=== PATIENT | female | born 1960 | race African-American/Black ===

== ENCOUNTER 2025-07-19 09:01 | Outpatient (REF) | payer MEDICARE, MEDICAID, SELFPAY ==
--- OUTSIDE RECORDS SUMMARY | 2025-07-19 09:43 | XMS_ITS | Clinical Summary ---
Author Organization [facility] Address [address] [place] [address] Care Team Providers Care Hose Inspector And Patcher Name Role Phone Shane Red MD Primary Care Provider [phone] Social History Tobacco Use Types Packs/Day Years Used Date Smoking Tobacco: Never Assessed Comments Unknown Sex and Gender Information Value Date Recorded Sex Assigned at Not on file Legal Sex Female 7:12 PM EST Gender Identity Not on file Sexual Orientation Not on file Plan of Treatment Health Maintenance Due Date Last Done Comments Breast Cancer Screening 1960 Colorectal Cancer Screening: Colonoscopy 1960 Pneumococcal Vaccine: 50+ Years (2 of 2 - PCV) 03/04/2018 03/04/2017 Zoster Vaccines (2 of 2) 12/05/2021 10/10/2021 DTaP,Tdap,and Td Vaccines (2 - Td or Tdap) 12/12/2021 12/13/2011 Cholesterol Screening (Lipid Panel) 07/27/2022 Hepatitis C Screening 07/27/2022 Osteoporosis Screening (Bone Density Screening) 07/27/2022 Social Influencers of Health Screening 07/27/2022 Depression Screening 08/25/2024 Hypertension/CHF/CAD Annual BMP Blood Test 12/24/2024 COVID-19 Vaccine ( season) 2025 05/19/2024, 06/28/2023, 07/04/2021, Additional history exists Influenza Vaccine (#1) 2025 , 06/28/2023, 05/18/2022, Additional history exists Falls Risk Assessment 2025 RSV Immunization Adult Patients Completed 05/19/2024 HIB Vaccines Aged Out No longer eligi ble based on patient's age to complete this topic HPV Vaccines Aged Out No longer eligi ble based on patient's age to complete this topic Hepatitis A Vaccines Aged Out No long er eligible based on patient's age to complete this topic Hepatitis B Vaccines Aged Out No long er eligible based on patient's age to complete this topic IPV Vaccines Aged Out No longer eligi ble based on patient's age to complete this topic MMR Vaccines Aged Out No longer eligi ble based on patient's age to complete this topic Meningococcal ACWY Vaccine Aged Out N o longer eligible based on patient's age to complete this topic Meningococcal B Vaccine Aged Out No l onger eligible based on patient's age to complete this topic RSV Immunization Patients Under 20 months Aged Out No longer eligible based on patient's age to complete this topic Varicella Vaccines Aged Out No longer eligible based on patient's age to complete this topic Advance Directives Documents on File Type Date Recorded Patient Distance Education Faculty Liaison Expl anation Health Care Decision (hx) 11/13/2020 AD MICHELLE DIRECTIVE Health Care Decision (hx) 11/13/2020 AD MICHELLE DIRECTIVE Health Care Decision (hx) 11/09/2020 AD MICHELLE DIRECTIVE Health Care Decision (hx) 11/09/2020 AD MICHELLE DIRECTIVE Care Teams Hose Inspector And Patcher Relationship Specialty Start Date End Date Shane Red MD [address] [place] [address] PCP - General Internal Medicine 02/24/18
== END 2025-07-19 09:02 | disposition home or self-care (01) ==
LOC: CF 09:01
DX: K43.2 Incisional hernia without obstruction or gangrene (principal)
CPT/HCPCS: 99202

== ENCOUNTER 2025-07-19 09:03 | Outpatient (AMB) | payer MEDICARE, MEDICAID, SELFPAY ==
--- NOTE | 2025-07-19 09:05 | MHC.OFFVIS ---
Vital Signs 07/19/25 09:24 Height 5 ft 4 in Weight 288 lb BMI 49.4 BP 126/64 Blood Pressure Location Rt radial Position Sitting Pulse 96 Intake Visit Reasons: complex incisional hernia Intake Note: Patient referred by PCP Dr. Red for assessment of complex incisional hernia. Patient c/o: fell three wks ago. Experiencing pain 7/10. Nausea. Taking Aleve as needed. Imaging: [facility] Chest CT 06-26-[address] abdomen pelvis 04-28-2025~ Images to be downloaded. Gun Profiler Required: No Accompanied by: Self / Same As Patient Allergies aspirin Allergy (Severe, Verified 07/19/25 09:17) Swelling penicillin G Allergy (Mild, Verified 07/19/25 09:17) Wheezing Medication List - Last Reconciled 07/19/25 by Oswaldo Dsouza MD albuterol sulfate 90 mcg/actuation (Ventolin HFA) 2 puffs inhalation QID atorvastatin (Lipitor) 40 mg PO DAILY furosemide (Lasix) 40 mg PO DAILY hydroxyzine HCl 25 mg PO BID PRN nitroglycerin 0.3 mg sublingual Q5M PRN semaglutide (Ozempic) 1 mg subcut QWEEK HPI Comments Details: Patient is a 65-year-old lady with a history of multiple recurrent ventral incisional hernias who was under the care of Dr. Katharine Ingram at [facility] who comes in to see me today for a 2nd opinion with regard to her hernia care. She reports that she had ?them all fixed? at [facility] many years ago (operative reports are not available at this time) and ?everything was great?. She goes on to say that she then moved away and had an outside facility in a different state she underwent cholecystectomy.? The surgeon told me that she had to take out all of the mesh when she took out my gallbladder. ?. Soon the patient reports that she felt anterior abdominal wall weakness and recurrence of her hernias. She then returned to the area for social and family reasons and resumed her hernia care here. She recently suffered a fall and presented to [facility] were imaging in the form of CT scan of her abdomen and pelvis were indicative of multiple recurrent anterior abdominal wall hernias. The films are not available but the report mentions 3 involving all of viscus. The report also mentions presence of anterior abdominal wall mesh even though the patient is adamant that ?all the mesh was taken out?. Currently the patient has some pain and discomfort with regard to her hernias and she has to ?push them in? in order to feel better. She denies any obstructive symptoms. She is purposefully losing weight and is quite happy that her dietary regimen as well as increased activity levels have brought her weight down from 352 lb to a current 288 lb. She denies smoking cigarettes she denies using alcohol. Past surgical history is also significant for sleeve gastrectomy. [facility] Medical History (Updated 07/19/25 @ 09:56 by Oswaldo Dsouza MD) GERD (gastroesophageal reflux disease) Diabetes Chronic myeloid leukemia Asthma Obesity Surgical History (Updated 07/19/25 @ 09:23 by MARCO Bianchi) Hx of hernia repair H/O gastric sleeve Social History (Updated 07/19/25 @ 09:23 by MARCO Bianchi) Alcohol intake: never Patient Tobacco Use Status: Never used Tobacco Review of Systems Const All systems reviewed & are unremarkable except as noted in HPI and below Musc Details: Patient has bilateral knee degenerative joint disease and uses a walker. Reports abnormal gait Neuro Reports abnormal gait Physical Exam Vital Signs: Last Vital Signs Pulse 96 07/19/25 09:24 BP 126/64 07/19/25 09:24 BMI result Body Mass Index 49.4 Const General: cooperative, healthy appearing, comfortable and no acute distress Nutritional Appearance: obese morbidly obese Orientation/consciousness: oriented to person, oriented to place and oriented to time HEENT Head: Yes normal to inspection Ears: hearing grossly normal bilaterally Eyes General: appearance normal, both eyes and all related structures Pupils: Equal, round and reactive pupils present EOM: EOMs intact bilaterally Neck Neck: Yes normal visual inspection Chest Chest palpation & inspection: normal inspection of the chest Resp Effort & Inspection: normal respiratory effort and able to speak in complete sentences Cardio Rate: regular rate Rhythm: regular rhythm GI Other: Vertical midline scar from umbilicus to the sternum. Abdominal wall is massive and pendulous with large dependent pannus. It was also very thick which precludes detailed physical interrogation. She has large reducible soft mass in the upper epigastrium consistent with either large hernia defect with diastasis of the abdominal wall musculature or both. It obviously contains hollow viscus. She also has multiple large irregularities involving the scar going all the way down to the umbilicus and even somewhat below the umbilicus. All of these irregularities and masses are soft and somewhat reducible but again her body habitus precludes detailed assessment with regard to what is going on with her anterior abdominal wall. Her presentation is consistent with somebody who has had complete disruption to varying degrees of her laparotomy scar when she is most likely beginning to go down the pathway of loss of abdominal domain. She does have some laxity on anterior abdominal wall consistent with recent high volume weight loss. There was no evidence of any chronic skin infections and no erythema or discharge involving the intertriginous folds of her pannus, umbilicus or anywhere else to my exam. Abdomen image:  1. Midline epigastric scar 2. Irregularity and reducible mass consistent with hernia 3. Irregularity 4. Irregularity 5. Irregularity Back/Spine/Pelvis Cervical Spine: normal cervical lordosis Thoracic/Lumbar Spine: thoracic and lumbar spine normal to inspection Neuro General: oriented to person, oriented to place and oriented to time Cranial nerves: Yes Equal, round and reactive pupils present Assessment & Plan Assessment & Plan (1) Ventral incisional hernia: Code(s): K43.2 - Incisional hernia without obstruction or gangrene Category: Medical Plan: I told the patient that her hernia problem was in the category of needing sub-specialized care. I added that most likely the only hope that she had for successful anterior abdominal wall reconstruction would include massive weight loss as well as an operative technique employing component separation with underlying mesh. She indicated that she understood. I added that I am not experienced or eventration component separation techniques and told her that she presented to me primarily for this problem I would most likely refer her to a surgeon such as Dr. Ingram who is experienced in this arena. She indicated that she understood. She said ?well, I guess I will give Dr. Ingram a call and follow up with her. I told her that would be prudent. I added that I would be happy to help her with any other aspect of her care and she indicated that she would let us know if she needed assistance in facilitating the process. Coding Level of Care Code New Pt Level 4 (31767) Diagnoses Ventral incisional hernia K43.2 Time Spent (min) 45 Comment Patient visit, record review and coordination of care
[2025-07-19 09:24] VITALS: BP 126/64; PULSE 96; BMI 49.4
== END 2025-07-19 09:39 | disposition home or self-care (01) ==
PROVIDERS: PCP Internal Medicine; Visit Provider Surgery
DX: K43.2 Incisional hernia without obstruction or gangrene (principal)
CPT/HCPCS: 99204